=== PATIENT | male | born 2000 | race Caucasian/White ===

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

== ENCOUNTER → 2019-08-14 | Outpatient (CLI) | payer OTHER | END | disposition home or self-care (01) | LOC: LAB 14:51 | PROVIDERS: ATTEND Internal Medicine Gastroenterology | DX: Z11.59 Encounter for screening for other viral diseases (principal) | CPT/HCPCS: U0003-CS ==

== ENCOUNTER → 2019-08-17 | Day surgery (SDC) | payer OTHER ==
[~2019-08-17] MED LIST: IV RINGERS,LACTATED 1000ML 1,000 ML IV SCH; LIDOCAINE 2% PF 5 ML VIAL. ONE; PROPOFOL 10 MG/ML (20ML) VIAL. IV ONE
--- NOTE | 2019-08-17 13:43 | CONS ---
DATE OF CONSULTATION: 08/17/2019 REFERRING PHYSICIAN: SAURABH Mckinley HISTORY OF PRESENT ILLNESS: The patient is a 19-year-old male who is seen with persistent diarrhea. It has been present now for approximately 4 months, up to 4 loose stools daily without blood. There is no exotic travel or recent antibiotics. He has lost approximately 15 pounds during this time. There are no extraintestinal manifestations of inflammatory bowel disease. Stool studies have been unrevealing. There has been no improvement with his symptoms and thus he is here for further evaluation and care. PAST MEDICAL HISTORY: Diarrhea, weight loss. ALLERGIES: None. MEDICATIONS: None. FAMILY AND SOCIAL HISTORY: Noncontributory. PAST SURGICAL HISTORY: Status post wisdom tooth extraction. REVIEW OF SYSTEMS: Per records. PHYSICAL EXAMINATION: GENERAL: Reveals a well-nourished, well-developed male. VITAL SIGNS: Temperature is 98.6, pulse 66, respirations 20. LUNGS: Clear. CARDIOVASCULAR: Reveals an S1, S2 without S3, S4 or appreciable murmur. ABDOMEN: Reveals soft abdomen, normal bowel sounds, without appreciable hepatosplenomegaly with epigastric tenderness to deep palpation. EXTREMITIES: Reveals no cyanosis, clubbing or edema. IMPRESSION: Diarrhea with abdominal pain, weight loss, etiology to be determined. Differential includes celiac disease, Whipple's, peptic ulcer disease, chronic pancreatitis, malignancy. Therefore, I recommend upper endoscopy to further assess. Risks and benefits of procedure including risk of hemorrhage and perforation during the operation were discussed. The patient is willing to proceed. HERMANN GILES MD DR: MARCE/deangelo JOB#: [id number] / [id number]
[2019-08-17 13:53] VITALS: BP 119/64
--- NOTE | 2019-08-18 18:10 | PATHOLOGY ---
[facility] [place] Accession Number: [id number] . 01 Material submitted: . duodenum - DUODENUM BIOPSY . 01 Clinical history: . abdominal pain . 02 Diagnosis: Duodenal biopsies: - No significant pathologic abnormalities. [facility] 08/18/2019 1014 Local . 02 Comment: Sections of the duodenal biopsy reveal segments of duodenal and small intestine mucosa. There are several small mucosal lymphoid aggregates. Where best oriented, the mucosal villi show no sprue-like changes or significant inflammatory changes. (JPM/db; 08/18/2019) . 02 Electronically signed: . Justin Worrell MD, Pathologist NPI- [id number] . 01 Gross description: . The specimen is received in formalin, labeled "Asa Hankins, duodenal BX rule out celiac" and consists of multiple fragments of pink-carter tissue measuring 0.8 x 0.8 x 0.3 cm in aggregate which are entirely submitted in A1. ([facility]; 08/17/2019) JFQ/JFQ 08/17/2019 1806 Local . 02 Pathologist provided ICD-10: R10.9 . 02 CPT . 652003 Specimen Comment: A courtesy copy of this report has been sent to [phone] Specimen Comment: Report sent to Performed at: 01 [facility] [address], [place] [id number] MD Eleno Barajas MD Phone: [phone] Performed at: 02 [facility] [address] [place], [place] [id number] MD Justin Worrell MD Phone: [phone]
== END ==
LOC: SURG 11:41
PROVIDERS: ATTEND Internal Medicine Gastroenterology
DX: R19.7 Diarrhea, unspecified (principal); K31.89 Other diseases of stomach and duodenum; F41.9 Anxiety disorder, unspecified; F32.9 Major depressive disorder, single episode, unspecified; F19.90 Other psychoactive substance use, unspecified, uncomplicated
CPT/HCPCS: 43239; 88305; J2704